=== PATIENT | male | born 1990 | race Caucasian/White ===

== ENCOUNTER 2017-09-13 20:00 | Emergency (ER) | payer OTHER ==
--- NOTE | 2017-09-13 20:19 | PDOC ---
Rapid Medical Evaluation Medical Evaluation: Allergies Allergy/AdvReac Type Severity Reaction Status Date / Time No Known Allergies Allergy Verified 11/05/13 08:26 09/13/17 20:16 I have performed a brief in-person evaluation of this patient. The patient presents with a chief complaint of: ate weed cookie, syncopized, fell & "slammed into a pole", "didn't drink water all day," MENDEZ, L knee pain, denies NVD Pertinent physical exam findings: VSS I have ordered the following: CBC, CMP, utox, IVF The patient will proceed to the ED for further evaluation.
[2017-09-13] MEDS ORDERED: SODIUM CHLORIDE 0.9% 1000 ML INFUS.BAG IV ONE (20:20)
[2017-09-13 20:21] VITALS: BP 110/59; PULSE 75; TEMP 97.1; BMI 28.7
[2017-09-13 21:11] LABS: URINE MARIJUANA THC POSITIVE ng/ml (CUTOFF=50)
[2017-09-13 21:12] LABS: BASOPHIL 0.6 % (0-2.0); EOSINOPHIL 1.7 % (0-4.5); MCH 29.2 pg (25.7-33.7); MCHC 33.3 g/dl (32.0-35.9); MEAN CELL VOLUME 87.6 fl (80-96); MEAN PLT VOLUME 10.5 fl (7.5-11.1); NEUTROPHILS 59.8 % (42.8-82.8); PLATELET COUNT 173 K/MM3 (134-434); RDW 13.3 % (11.9-15.9); WHITE BLOOD COUNT 7.7 K/mm3 (4.0-10.0)
[2017-09-13 22:03] LABS: ALBUMIN 4.1 g/dl (3.4-5.0); ALK PHOS 88 U/L (45-117); ANION GAP 7 (8-16); BILIRUBIN,TOTAL 0.4 mg/dL (0.2-1.0); CALCIUM 8.7 mg/dL (8.5-10.1); CO2 29 mmol/L (21-32); CREATININE 1.3 mg/dL (0.7-1.3); GLUCOSE,RANDOM 121 mg/dL (74-106); SGOT/AST 11 U/L (15-37); SGPT/ALT 37 U/L (12-78); TOT PROT 7.8 g/dl (6.4-8.2)
--- NOTE | 2017-09-13 23:05 | PDOC ---
History of Present Illness - General Chief Complaint: Syncope/Near Syncope Stated Complaint: SUBSTANCE ABUSE Time Seen by Provider: 09/13/17 20:22 History Source: Patient Exam Limitations: No Limitations - History of Present Illness Initial Comments: 09/13/17 23:05 27M with familial hypertriglyceridemia presents with syncopal episode after eating half a marijuana cookie before dinner. He caims that he had a similar episode in the past after consuming marijuana and being dehydrated. 09/13/17 23:41 Past History - Past Medical History Allergies/Adverse Reactions: Allergies Allergy/AdvReac Type Severity Reaction Status Date / Time No Known Allergies Allergy Verified 11/05/13 08:26 Home Medications: Ambulatory Orders No Home Medications 0 dose .ROUTE UTDICT 11/05/13 COPD: No Thyroid Disease: (DENIES) - Immunization History Immunization Up to Date: Yes - Suicide/Smoking/Psychosocial Hx Smoking History: Never smoked Have you smoked in the past 12 months: No Information on smoking cessation initiated: No Hx Alcohol Use: No Drug/Substance Use Hx: No Substance Use Type: None Review of Systems - Review of Systems Able to Perform ROS?: Yes Is the patient limited Trinidadian proficient: No Constitutional: Yes: See HPI. No: Symptoms Reported HEENTM: No: Symptoms Reported Respiratory: No: Symptoms reported Cardiac (ROS): No: Symptoms Reported ABD/GI: No: Symptoms Reported : No: Symptoms Reported Musculoskeletal: No: Symptoms Reported Integumentary: No: Symptoms Reported Neurological: No: Symptoms reported All Other Systems: Reviewed and Negative *Physical Exam - Vital Signs Last Vital Signs Temp Pulse Resp BP Pulse Ox 97.1 F L 75 18 110/59 99 09/13/17 20:16 09/13/17 20:16 09/13/17 20:16 09/13/17 20:16 09/13/17 20:16 - Physical Exam General Appearance: Yes: Nourished, Appropriately Dressed. No: Apparent Distress HEENT: positive: EOMI, MAMTA, Normal ENT Inspection Neck: negative: Tender Respiratory/Chest: positive: Lungs Clear, Normal Breath Sounds. negative: Chest Tender Cardiovascular: positive: Regular Rhythm, Regular Rate, S1, S2 Gastrointestinal/Abdominal: positive: Normal Bowel Sounds, Flat, Soft. negative : Tender Extremity: positive: Normal Capillary Refill Integumentary: positive: Normal Color, Dry, Warm ED Treatment Course - LABORATORY CBC & Chemistry Diagram: 09/13/17 20:25 09/13/17 20:25 - ADDITIONAL ORDERS Additional order review: Laboratory Results 09/13/17 09/13/17 20:25 20:15 Sodium 137 Potassium 3.9 Chloride 101 Carbon Dioxide 29 Anion Gap 7 L BUN 19 H Creatinine 1.3 Creat Clearance w eGFR > 60 Random Glucose 121 H Calcium 8.7 Total Bilirubin 0.4 AST 11 L ALT 37 Alkaline Phosphatase 88 Total Protein 7.8 Albumin 4.1 Opiates Screen Negative Methadone Screen Negative Barbiturate Screen Negative Phencyclidine Screen Negative Ur Amphetamines Screen Negative MDMA (Ecstasy) Screen Negative Benzodiazepines Screen Negative Cocaine Screen Negative U Marijuana (THC) Screen Positive 09/13/17 20:25 RBC 4.78 MCV 87.6 MCHC 33.3 RDW 13.3 MPV 10.5 Neutrophils % 59.8 Lymphocytes % 31.7 Monocytes % 6.2 Eosinophils % 1.7 Basophils % 0.6 - Medications Given in the ED: ED Medications Discontinued Medications Generic Name Dose Route Start Last Admin Trade Name Gentryq PRN Reason Stop Dose Admin Sodium Chloride 1,000 ml 09/13/17 20:20 09/13/17 22:38 Normal Saline - IV 09/13/17 20:21 1,000 ml ONCE ONE Administration Medical Decision Making - Medical Decision Making 09/13/17 23:58 27 with sycopal episode after eating marijuana cookie. Likely vasovagal. Patient given fluids, EKG, CXR negative urine positive foor marijuana only. D/C 09/14/17 00:13 *DC/Admit/Observation/Transfer Diagnosis at time of Disposition: Vasovagal episode - Discharge Dispostion Disposition: HOME Admit: No - Referrals - Patient Instructions Printed Discharge Instructions: DI for Syncope in Adults (Fainting) Additional Instructions: Follow up with primary doctor within 1 week. Come back for any new, concerning or worsening symptoms like passing out again. - Post Discharge Activity
--- NOTE | 2017-09-13 23:27 | PDOC ---
Attending Attestation - Resident Resident Name: Kane Sebastian - ED Attending Attestation I have performed the following: I have examined & evaluated the patient, The case was reviewed & discussed with the resident, I agree w/resident's findings & plan, Exceptions are as noted - HPI HPI: 09/13/17 23:39 27-year-old male with familial hypertriglyceridemia presents with syncopal episode after eating a weed cookie. Patient reports feeling lightheadedness after standing up and then began to see tunnel vision and then states he fell down onto his knees. He lost consciousness for 2 seconds he states and came back to baseline within 1 minute. Denies any confusion, urinary incontinence, tongue biting. The patient's girlfriend who had a much smaller piece of the week cookie witnessed the entire episode. No head strike. The patient reports he feels much better now just feels a little bit nauseous. Denies chest pain, shortness of breath, palpitations at any point. Has been in his usual state of good health, denies fevers, chills, headache, focal weakness or numbness, lower extremity edema, rashes. Denies any other drug or alcohol ingestions. - Physicial Exam PE: 09/13/17 23:43 GENERAL: Awake, alert, and fully oriented, in no acute distress HEAD: No signs of trauma EYES: PERRLA, EOMI, sclera anicteric, conjunctiva clear ENT: Auricles normal inspection, hearing grossly normal, nares patent, oropharynx clear without exudates. Moist mucosa NECK: Normal ROM, supple, no lymphadenopathy, JVD, or masses LUNGS: Breath sounds equal, clear to auscultation bilaterally. No wheezes, and no crackles HEART: Regular rate and rhythm, normal S1 and S2, no murmurs, rubs or gallops ABDOMEN: Soft, nontender, normoactive bowel sounds. No guarding, no rebound. No masses EXTREMITIES: Normal range of motion, no edema. No clubbing or cyanosis. No cords, erythema, or tenderness NEUROLOGICAL: Normal speech, cranial nerves intact, negative pronator drift, 5/ 5 strength in all 4 extremities, normal sensation to light touch in all 4 extremities, normal cerebellar exam, normal gait, normal reflexes and tone SKIN: Warm, Dry, normal turgor, no rashes or lesions noted. - Medical Decision Making 09/13/17 23:44 27-year-old male with a history of familial hypertriglyceridemia presents with syncopal episode after eating a weed brownie. Likely vasovagal given lightheadedness prior to episode and quick return to baseline. EKG also within normal limits which speaks against prolonged QT, Brugada, WPW as etiology of syncope. Vitals and exam in the ED within normal limits. Plan: -basic labs -cxr -ivf -likely DC Heart Score/ECG Review #1 09/13/17 23:44 Twelve-lead EKG was performed and reviewed by me. Normal sinus rhythm, rate 69. Normal axis and intervals. No ST elevations. Isolated T-wave inversion in lead 3.
--- NOTE | 2017-09-14 11:04 | EKG ---
Test Reason : Blood Pressure : / mmHG Vent. Rate : 069 BPM Atrial Rate : 069 BPM P-R Int : 136 ms QRS Dur : 100 ms QT Int : 390 ms P-R-T Axes : 058 006 012 degrees QTc Int : 417 ms POOR DATA QUALITY, INTERPRETATION MAY BE ADVERSELY AFFECTED NORMAL SINUS RHYTHM MINIMAL VOLTAGE CRITERIA FOR LVH, MAY BE NORMAL VARIANT BORDERLINE ECG NO PREVIOUS ECGS AVAILABLE Confirmed by JACQUELINE ANTOINE, LIDIA ([id number]) on 09/14/2017 11:04:12 AM Referred By: Confirmed By:LIDIA PHILLIPS MD
== END 2017-09-14 00:32 | disposition home or self-care (01) ==
LOC: JER 20:00
PROC: 3E0337Z Introduction of Electrolytic and Water Balance Substance into Peripheral Vein, Percutaneous Approach (ICD-10-PCS; principal; 2017-09-13)
DX: R55 Syncope and collapse (principal); E78.5 Hyperlipidemia, unspecified
CPT/HCPCS: 36415; 71020-TC; 80053; 80307; 85025; 93005; 93010; 99282-25